=== PATIENT | female | born 1980 ===

== ENCOUNTER 2023-03-16 06:47 | Outpatient (CLI) | payer OTHER | END 2023-03-16 06:48 | disposition home or self-care (01) | LOC: LAB 06:47 | PROVIDERS: ATTEND Obstetrics & Gynecology | DX: D50.8 Other iron deficiency anemias (principal); N39.0 Urinary tract infection, site not specified; E07.89 Other specified disorders of thyroid; I11.9 Hypertensive heart disease without heart failure; E78.3 Hyperchylomicronemia; E55.9 Vitamin D deficiency, unspecified; N95.1 Menopausal and female climacteric states; L68.0 Hirsutism ==

== ENCOUNTER 2023-03-16 11:51 | Outpatient (CLI) | payer OTHER | END 2023-03-16 11:59 | disposition home or self-care (01) | LOC: MAMO-SONO 11:51 | PROVIDERS: ATTEND Obstetrics & Gynecology | DX: N60.21 Fibroadenosis of right breast (principal); N60.22 Fibroadenosis of left breast; Z12.31 Encounter for screening mammogram for malignant neoplasm of breast ==